=== PATIENT | male | born 1965 | race Caucasian/White ===

== ENCOUNTER 2018-07-02 18:01 | Emergency (ER) | payer MEDICARE ==
[~2018-07-02] VITALS: Ht 185.4 cm; Wt 89.3 kg
[2018-07-02 18:51] VITALS: Ht 185.4 cm; Wt 89.3 kg
[2018-07-02] MEDS ORDERED: HALDOL5 MG/ML IM (18:54)
[2018-07-02 19:32] LABS: BASOPHILS 0.3 % (0-2); EOSINOPHILS 0.8 % (0-7); HEMATOCRIT 40.6 % (42.0-54.0); IMMATURE GRANULOCYTES 0.2 % (0-5); LYMPHOCYTES 23.5 % (15-50); MCHC 34.5 g/dL (31.0-37.0); MCV 92.9 fL (80.0-100.0); MEAN PLATELET VOLUME 9.4 fL (7.4-10.4); MONOCYTES 13.4 % (2-11); NEUTROPHILS 61.8 % (40-80); PLATELET COUNT 226 10x3/uL (130-400); RBC 4.37 10x6/uL (4.20-6.10); RDW 12.7 % (11.5-14.5)
[2018-07-02 19:50] LABS: ALBUMIN 4.3 g/dL (3.4-5.0); ANION GAP 16.2 mmol/L (8-16); BILIRUBIN - TOTAL 0.92 mg/dL (0.2-1.3); CALCIUM 9.6 mg/dL (8.5-10.1); CARBON DIOXIDE 26.6 mmol/L (21.0-32.0); CREATININE - SERUM 1.6 mg/dL (0.6-1.3); POTASSIUM - SERUM 3.8 mmol/L (3.5-5.1); PROTEIN - SERUM 7.6 g/dL (6.4-8.2)
[2018-07-02 21:05] VITALS: BP 104/87
== END 2018-07-02 21:05 | disposition home or self-care (01) ==
LOC: D.ER 18:01
PROVIDERS: Family Medicine
DX: I87.2 Venous insufficiency (chronic) (peripheral) (principal)

== ENCOUNTER → 2018-08-07 17:52 | Outpatient (CLI) | payer MEDICARE ==
[2018-07-02 18:51] VITALS: BMI 25.9
[~2018-08-07 17:52] MED LIST: HALDOL5 MG/ML IM
== END | disposition home or self-care (01) ==
LOC: D.LABREF 17:52
PROVIDERS: ATTEND Family Medicine
DX: R19.7 Diarrhea, unspecified (principal)